=== PATIENT | male | born 1940 | race Caucasian/White ===

== ENCOUNTER 2024-03-30 23:04 | Emergency (ER) | payer SELFPAY ==
[~2024-03-30] VITALS: Ht 175.3 cm; Wt 79.5 kg
[2024-03-31 00:25] VITALS: BP 144/89; PULSE 69; RESP 18; TEMP 98.5; O2SAT 98
== END 2024-03-31 00:28 ==
LOC: ER 23:05
DX: Z04.1 Encounter for examination and observation following transport accident (principal); V89.2XXA Person injured in unspecified motor-vehicle accident, traffic, initial encounter; Y93.89 Activity, other specified; Y92.89 Other specified places as the place of occurrence of the external cause; Y99.8 Other external cause status
CPT/HCPCS: 99283